=== PATIENT | male | born 1995 | race Two or more races ===

== ENCOUNTER 2016-05-15 11:30 | Emergency (ER) | payer OTHER ==
[2016-05-15] MEDS ORDERED: ONDANSETRON 4 MG/2 ML VIAL IVP STA (12:04)
[2016-05-15] MEDS ORDERED: SODIUM CHLORIDE 0.9% 1,000 ML IV ONE (12:04)
[2016-05-15] MEDS ORDERED: ONDANSETRON 4 MG/2 ML VIAL ONE (12:11)
[2016-05-15] MEDS ORDERED: KETOROLAC 60 MG/2 ML VIAL IVP STA (12:29)
[2016-05-15] MEDS ORDERED: KETOROLAC 30 MG/ML VIAL ONE (12:30)
== END 2016-05-15 14:20 | disposition home or self-care (01) ==
DX: T62.8X1A Toxic effect of other specified noxious substances eaten as food, accidental (unintentional), initial encounter (principal); K52.1 Toxic gastroenteritis and colitis; R11.2 Nausea with vomiting, unspecified; R03.0 Elevated blood-pressure reading, without diagnosis of hypertension